=== PATIENT | female | born 1935 | race Caucasian/White ===

== ENCOUNTER 2020-01-25 07:53 | Day surgery (SDC) | payer MEDICARE, OTHER ==
[~2020-01-25] VITALS: Ht 165.1 cm; Wt 60.8 kg
[2020-01-25] VITALS (9 sets, daily range): BP systolic 132–175; BP diastolic 60–75
[2020-01-25] MEDS ORDERED: diphenhydrAMINE 25mg capsule PO PRN (08:15)
[2020-01-25] MEDS ORDERED: normal saline 1,000 ML IV SCH (08:15)
[2020-01-25] MEDS ORDERED: DILT180C87 PO (08:33)
[2020-01-25] MEDS ORDERED: FLUT16SP26 (08:33)
[2020-01-25] MEDS ORDERED: LOVA20TA2 PO (08:33)
[2020-01-25] MEDS ORDERED: DIGO250T2 PO (08:33)
[2020-01-25] MEDS ORDERED: PARO20TA6 PO (08:33)
[2020-01-25] MEDS ORDERED: LEVO50TA8 PO (08:33)
[2020-01-25] MEDS ORDERED: UBID30CA11 PO (08:38)
[2020-01-25] MEDS ORDERED: ASPI-611 PO (08:38)
[2020-01-25] MEDS ORDERED: CRAN450T4 PO (08:38)
[2020-01-25] MEDS ORDERED: ACET-2119 PO (08:38)
[2020-01-25] MEDS ORDERED: MAGN400C PO (08:38)
[2020-01-25] MEDS ORDERED: CALC-723 PO (08:38)
[2020-01-25] MEDS ORDERED: OMEG1CAP21 PO (08:38)
[2020-01-25] MEDS ORDERED: VIT1CAPS46 PO (08:38)
[2020-01-25] MEDS ORDERED: ACET-2971 PO (08:38)
[2020-01-25] MEDS ORDERED: MULT-1085 PO (08:38)
[2020-01-25 08:39] LABS: BASOPHILS # (AUTO) 0.1 X10'3 (0-0.2); EOSINOPHILS # (AUTO) 0.1 X10'3 (0-0.9); EOSINOPHILS % (AUTO) 1.8 % (0-6); HEMATOCRIT 41.8 % (35.0-45.0); HEMOGLOBIN 13.8 g/dl (12.0-16.0); LYMPHOCYTES # (AUTO) 2.1 X10'3 (1.1-4.8); LYMPHOCYTES % (AUTO) 31.2 % (21-51); MEAN CORPUSCULAR HEMOGLOBIN 28.8 PG (27.0-31.0); MEAN CORPUSCULAR HGB CONC 33.1 g/dL (33.0-36.5); MEAN CORPUSCULAR VOLUME 87.1 FL (78-98); MEAN PLATELET VOLUME 8.1 FL (7.4-10.4); MONOCYTES # (AUTO) 0.6 X10'3 (0-0.9); MONOCYTES % (AUTO) 9.5 % (2-12); NEUTROPHILS # (AUTO) 3.8 X10'3 (1.8-7.7); NEUTROPHILS % (AUTO) 56.5 % (42-75); PLATELET COUNT 240 X10'3 (140-440); RED CELL DISTRIBUTION WIDTH 13.6 % (11.5-14.5); WHITE BLOOD COUNT 6.7 X10'3 (4.5-11.0)
[2020-01-25 08:52] LABS: ALBUMIN 3.7 G/DL (3.4-5.0); ANION GAP 6 (8-16); BLOOD UREA NITROGEN 15 MG/DL (7-18); BUN/CREATININE RATIO 17.4 (6.6-38.0); CALCIUM 9.2 MG/DL (8.5-10.1); CHLORIDE 110 MMOL/L (99-107); CREATININE 0.86 MG/DL (0.40-0.90); GLUCOSE 106 MG/DL (70-104); MAGNESIUM 2.2 MG/DL (1.5-2.4); POTASSIUM 3.8 MMOL/L (3.5-5.1); SODIUM 146 MMOL/L (135-145); TOTAL CARBON DIOXIDE 29.7 MMOL/L (24-32); eGFR 63 ML/MIN
[2020-01-25] MEDS ORDERED: fentaNYL/PF 50MCG/1 ML 2ML syringe ONE (08:52)
[2020-01-25] MEDS ORDERED: iohexol 350MG/ML 100ml bottle IV ONE (08:52)
[2020-01-25] MEDS ORDERED: iohexol 350 MG/ML 50ML vial IV ONE (08:52)
[2020-01-25] MEDS ORDERED: midazolam 2 mg/2 ml injection ONE (08:52)
[2020-01-25] MEDS ORDERED: heparin 1,000unit/ml 10ml vial 10 ML ONE (08:52)
[2020-01-25] MEDS ORDERED: LIDOcaine 1% (10mg/ml)w/preservative injection 20ml MDV ONE (08:52)
[2020-01-25] MEDS ORDERED: LIDOcaine 1% W/epiNEPHrine 1:100,000 20ml vial ONE (10:19)
[2020-01-25] MEDS ORDERED: ondansetron/PF 4mg/2ml inj IV PRN (11:00)
[2020-01-25] MEDS ORDERED: normal saline 1000ml 1,000 ML IV SCH (11:00)
[2020-01-25] MEDS ORDERED: proCHLORperazine 10 MG/2 ml inj IV PRN (11:00)
== END 2020-01-25 13:55 | disposition home or self-care (01) ==
LOC: SSTAY O 07:53
PROVIDERS: ATTEND Internal Medicine Cardiovascular Disease
DX: I35.0 Nonrheumatic aortic (valve) stenosis (principal); I25.10 Atherosclerotic heart disease of native coronary artery without angina pectoris; E78.5 Hyperlipidemia, unspecified; I10 Essential (primary) hypertension; I47.1 Supraventricular tachycardia; F41.9 Anxiety disorder, unspecified; E03.9 Hypothyroidism, unspecified; Z88.8 Allergy status to other drugs, medicaments and biological substances; Z88.0 Allergy status to penicillin; Z86.73 Personal history of transient ischemic attack (TIA), and cerebral infarction without residual deficits; Z45.09 Encounter for adjustment and management of other cardiac device; Z79.899 Other long term (current) drug therapy
CPT/HCPCS: 33286; 36415; 80048; 83735; 85025; 85610; 93005; 93460; 99152; 99153; C1769; C1894; J1644; J2001; J2250; J3010; J7030; Q0163; Q9967; A5120; A6258; C1760; C1764

== ENCOUNTER 2020-12-26 12:20 | Observation (INO) | payer MEDICARE, OTHER ==
[2020-12-26] VITALS (22 sets, daily range): BP systolic 83–192; BP diastolic 37–72
[~2020-12-26] VITALS: Ht 165.1 cm; Wt 58.5 kg
[~2020-12-26 12:20] MED LIST: ACET-2119 PO; ACET-2971 PO; ASPI-611 PO; CALC-723 PO; CRAN450T4 PO; DIGO250T2 PO; DILT180C87 PO; FLUT16SP26; LEVO50TA8 PO; LOVA20TA2 PO; MAGN400C PO; MULT-1085 PO; OMEG1CAP21 PO; PARO20TA6 PO; UBID30CA11 PO; VIT1CAPS46 PO
[2020-12-26] MEDS ORDERED: LIDOcaine 1% W/epiNEPHrine 1:100,000 20ml vial ONE (12:27)
[2020-12-26] MEDS ORDERED: vancomycin 1,000mg inj ONE (12:27)
[2020-12-26] MEDS ORDERED: fentaNYL/PF 50MCG/1 ML 2ML syringe ONE ×2 (12:45→14:26)
[2020-12-26] MEDS ORDERED: midazolam 1 mg/ML 2ml injection ONE ×2 (12:45→13:49)
[2020-12-26] MEDS ORDERED: vancomycin/NS 1 GM ADD-VANTAGE 250 ML IV ONE (12:50)
[2020-12-26] MEDS ORDERED: normal saline 1000ml 1,000 ML IV SCH (12:50)
[2020-12-26] MEDS ORDERED: cefazolin/dext.iso 2gm/100ml 100 ML IV ONE (12:50)
[2020-12-26] MEDS ORDERED: LORA-269 PO (12:52)
[2020-12-26] MEDS ORDERED: LISI20TA28 PO (12:52)
[2020-12-26 13:25] LABS: BASOPHILS # (AUTO) 0.1 X10'3 (0-0.2); BASOPHILS % (AUTO) 0.6 % (0-1); EOSINOPHILS # (AUTO) 0.2 X10'3 (0-0.9); EOSINOPHILS % (AUTO) 1.8 % (0-6); HEMATOCRIT 47.2 % (35.0-45.0); HEMOGLOBIN 15.8 g/dl (12.0-16.0); LYMPHOCYTES % (AUTO) 30.8 % (21-51); MEAN CORPUSCULAR HEMOGLOBIN 29.3 PG (27.0-31.0); MEAN CORPUSCULAR HGB CONC 33.5 g/dL (33.0-36.5); MEAN CORPUSCULAR VOLUME 87.4 FL (78-98); MEAN PLATELET VOLUME 8.6 FL (7.4-10.4); MONOCYTES # (AUTO) 0.9 X10'3 (0-0.9); MONOCYTES % (AUTO) 9.2 % (2-12); NEUTROPHILS # (AUTO) 5.7 X10'3 (1.8-7.7); NEUTROPHILS % (AUTO) 57.6 % (42-75); PLATELET COUNT 264 X10'3 (140-440); RED CELL DISTRIBUTION WIDTH 13.3 % (11.5-14.5); WHITE BLOOD COUNT 9.8 X10'3 (4.5-11.0)
[2020-12-26 13:30] LABS: ALBUMIN 4.3 G/DL (3.4-5.0); ANION GAP 8 (8-16); BLOOD UREA NITROGEN 15 MG/DL (7-18); BUN/CREATININE RATIO 21.4 (6.6-38.0); CALCIUM 9.7 MG/DL (8.5-10.1); CHLORIDE 106 MMOL/L (99-107); GLUCOSE 102 MG/DL (70-104); MAGNESIUM 2.4 MG/DL (1.5-2.4); SODIUM 143 MMOL/L (135-145); TOTAL CARBON DIOXIDE 28.7 MMOL/L (24-32); eGFR 79 ML/MIN
--- NOTE | 2020-12-26 14:39 | NUR ---
Problems reprioritized. Patient report given, questions answered & plan of care reviewed with Caita VELASCO.
[2020-12-26] MEDS ORDERED: flecainide 50mg tablet PO ONE (15:25)
[2020-12-26] MEDS ORDERED: normal saline 1000ml 1,000 ML IV ONE (18:40)
--- NOTE | 2020-12-26 18:45 | NUR ---
Notified Dr. Henson that the patient is having orthostatic hypotension, slurred speech and difficulty with communicating after movement. Daughter requesting to have patient to stay over night due to change in condition. Nursing school crossing guard supervisor notified and room given. Will continue to monitor.
--- NOTE | 2020-12-26 18:55 | NUR ---
Problems reprioritized. Patient report given, questions answered & plan of care reviewed with Roxana VELASCO.
[2020-12-26] MEDS ORDERED: apixaban 5mg tablet PO SCH (19:00)
--- NOTE | 2020-12-26 19:31 | NUR ---
Jada VELASCO and I transported patient via gurney and provided bedside report with William VELASCO and Roxana. Denied further questions.
[2020-12-26] MEDS ORDERED: flecainide 50mg tablet PO SCH (20:00)
[2020-12-26] MEDS ORDERED: digoxin 250mcg (0.25mg) tablet PO SCH (20:00)
[2020-12-26] MEDS ORDERED: diltiazem CD 180mg cap (once-daily) PO SCH (20:00)
--- NOTE | 2020-12-26 20:35 | NUR ---
Called [facility]ik for sbp 90/39, map last hr in high 50's-new orders to turn iv fluids to 500 x1 hr, then continue back at 125 ml/hr. dc digoxin and cardizem, change flecanide 100 mg dose to start in am, as patient has already got 300 mg loding dose. sohan RN
[2020-12-26] MEDS ORDERED: LORazepam 0.5 MG tablet PO SCH (21:00)
--- NOTE | 2020-12-26 23:00 | NUR ---
Strait cath for bladder scan retention of 356. strait cath resulted in 400 ml out. Suzanne VELASCO
[2020-12-26] MEDS: normal saline 1000ml 1,000 ML IV SCH (23:48)
[2020-12-27] VITALS: BP 117/43
[2020-12-27 02:00] VITALS: BP 128/49
[2020-12-27 04:00] VITALS: BP 127/48
--- NOTE | 2020-12-27 06:10 | NUR ---
Patient in room MED 315. I have received report from ROD Schmidt and had the opportunity to ask questions and assume patient care.
--- NOTE | 2020-12-27 06:18 | NUR ---
Problems reprioritized. Patient report given, questions answered & plan of care reviewed with JESSIKA VELASCO.
--- NOTE | 2020-12-27 06:59 | NUR ---
Patient in room MED 315. I have received report from Roxana VELASCO and had the opportunity to ask questions and assume patient care. Patient in no distress, call light in reach, white board updated.
[2020-12-27 07:00] VITALS: BP 151/51
[2020-12-27] MEDS ORDERED: calcium carbonate/vitamin D3 tablet PO SCH (08:00)
[2020-12-27] MEDS ORDERED: magnesium oxide 400mg tablet PO SCH (08:00)
[2020-12-27] MEDS ORDERED: lisinopril 20mg tablet PO SCH (08:00)
[2020-12-27] MEDS ORDERED: atorvastatin 10mg tablet PO SCH (08:00)
[2020-12-27] MEDS ORDERED: fluticasone nasal spray 16GM bottle NS SCH (08:00)
[2020-12-27] MEDS ORDERED: flecainide 50mg tablet PO SCH (08:00)
[2020-12-27] MEDS ORDERED: non-formulary drug (Cranberry Extract (Cranberry) 1 TAB) PO SCH (08:00)
[2020-12-27] MEDS ORDERED: levoTHYROXINE 25mcg tablet PO SCH (08:00)
[2020-12-27] MEDS ORDERED: PARoxetine 20mg tablet PO SCH (08:00)
[2020-12-27] MEDS ORDERED: beta-carotene(A) w/C & E + minerals tab PO SCH (08:00)
[2020-12-27] MEDS ORDERED: OMEGA-3/DHA/EPA/FISH OIL 1 EACH CAPSULE.DR PO SCH (08:00)
[2020-12-27] MEDS ORDERED: acetaminophen 325mg tablet PO SCH (08:00)
[2020-12-27] MEDS: normal saline 1000ml 1,000 ML IV SCH (08:27)
[2020-12-27 08:31] LABS: ALBUMIN 2.9 G/DL (3.4-5.0); ANION GAP 9 (8-16); BLOOD UREA NITROGEN 19 MG/DL (7-18); BUN/CREATININE RATIO 31.7 (6.6-38.0); CALCIUM 7.9 MG/DL (8.5-10.1); CHLORIDE 109 MMOL/L (99-107); GLUCOSE 93 MG/DL (70-104); MAGNESIUM 2.3 MG/DL (1.5-2.4); SODIUM 144 MMOL/L (135-145); TOTAL CARBON DIOXIDE 25.6 MMOL/L (24-32); eGFR > 90 ML/MIN
[2020-12-27 11:00] VITALS: BP 155/54
[2020-12-27] MEDS ORDERED: APIX5TAB3 PO (12:04)
[2020-12-27] MEDS ORDERED: FLEC100T35 PO (12:06)
--- NOTE | 2020-12-27 14:20 | NUR ---
Patient stable for discharge per Dr Henson's orders. All instructions were given to patient and daughter Christine, all questions answered appropriately. PIV discontinued, cannula intact. Tele discontinued, television production technician notified. All belongings were collected and sent with patient and family member. New RX called into [facility] pharmacy, daughter is picking up medications. Informed Christine and Aarti she needs to start Eliquis today 12/27/20 at 4pm. Informed they need to make pt a follow up with Dr Henson within 4 weeks. Wheeled pt to lobby and assisted into Christine's vehicle.
[2020-12-27] MEDS ORDERED: apixaban 5mg tablet PO SCH (16:00)
== END 2020-12-27 14:20 | disposition home or self-care (01) ==
LOC: SSTAY O 12:20 → MED 3N 19:31
PROVIDERS: ADMIT Internal Medicine Cardiovascular Disease; ATTEND Internal Medicine Cardiovascular Disease
DX: I49.5 Sick sinus syndrome (principal); R55 Syncope and collapse; I49.9 Cardiac arrhythmia, unspecified; I47.1 Supraventricular tachycardia; I35.0 Nonrheumatic aortic (valve) stenosis; I10 Essential (primary) hypertension; E78.5 Hyperlipidemia, unspecified; G45.9 Transient cerebral ischemic attack, unspecified; E03.9 Hypothyroidism, unspecified; F41.9 Anxiety disorder, unspecified; Z90.49 Acquired absence of other specified parts of digestive tract; Z90.710 Acquired absence of both cervix and uterus; Z95.2 Presence of prosthetic heart valve; Z95.828 Presence of other vascular implants and grafts; Z79.02 Long term (current) use of antithrombotics/antiplatelets; Z79.899 Other long term (current) drug therapy; Z88.0 Allergy status to penicillin; Z88.3 Allergy status to other anti-infective agents; Z88.8 Allergy status to other drugs, medicaments and biological substances
CPT/HCPCS: 33208; 36415; 71045; 80048; 83735; 85025; 85610; 87081; 93005; 96361; 96365; 96366; C1785; C1894; C1898; G0378; J2250; J3010; J3370; J7030; 99152; 99153; A4565; A4620